=== PATIENT | male | born 2000 | race Caucasian/White ===

== ENCOUNTER 2020-07-03 13:21 | Outpatient (CLI) | payer OTHER, SELFPAY ==
--- NOTE | 2020-07-03 13:27 | XR_ITS ---
WS: [id number] PROCEDURE: XR chest 2V* [id number] CLINICAL INFORMATION: CHEST PAIN, ATYPICAL COMPARISON: None. FINDINGS: Heart: Normal cardiac silhouette. Lungs: Lungs are clear. No consolidation or pleural fluid. Bones: Normal visualized bony structures. Normal visualized ribs. XR/XR chest 2V* [id number] IMPRESSION: Normal chest
== END 2020-07-03 13:22 | disposition home or self-care (01) ==
LOC: RADWPI 13:24
PROVIDERS: Family Provider Family Medicine; PCP Family Medicine; Visit Provider Family Medicine
DX: R07.89 Other chest pain (principal)
CPT/HCPCS: 71046

== ENCOUNTER 2021-06-25 06:00 | Outpatient (RCR) | payer OTHER, SELFPAY | END 2021-06-29 23:59 | disposition home or self-care (01) | LOC: SOT 06:00 | PROVIDERS: PCP Family Medicine; Referring Provider Physician Assistant; Visit Provider Physician Assistant | DX: Z98.890 Other specified postprocedural states (principal); Z87.81 Personal history of (healed) traumatic fracture | CPT/HCPCS: 97110; 97165 ==

== ENCOUNTER 2021-06-30 06:00 | Outpatient (RCR) | payer OTHER, SELFPAY | END 2021-07-30 23:59 | disposition home or self-care (01) | LOC: SOT 06:00 | PROVIDERS: PCP Family Medicine; Referring Provider Physician Assistant; Visit Provider Physician Assistant | DX: Z98.890 Other specified postprocedural states (principal); Z87.81 Personal history of (healed) traumatic fracture | CPT/HCPCS: 97110; 97140 ==

== ENCOUNTER → 2022-08-07 15:40 | Outpatient (BNVA) | payer OTHER, SELFPAY | PROVIDERS: PCP Family Medicine; Visit Provider Family Medicine | DX: Z20.2 Contact with and (suspected) exposure to infections with a predominantly sexual mode of transmission (principal) | CPT/HCPCS: 87491; 87591 ==

== ENCOUNTER → 2023-01-22 13:55 | Outpatient (BNVA) | payer OTHER, SELFPAY | PROVIDERS: PCP Family Medicine; Visit Provider Family Medicine | DX: M19.90 Unspecified osteoarthritis, unspecified site (principal) | CPT/HCPCS: 84550; 85025; 86140 ==

== ENCOUNTER → 2023-05-29 08:32 | Outpatient (BNVA) | payer OTHER, SELFPAY | PROVIDERS: PCP Family Medicine; Visit Provider Family Medicine | DX: M19.90 Unspecified osteoarthritis, unspecified site (principal) | CPT/HCPCS: 80053; 80061; 84443; 84550; 85025; 86140 ==